=== PATIENT | male | born 1950 | race Caucasian/White ===

== ENCOUNTER 2016-11-08 02:59 | Inpatient (IN) | payer BC ==
[~2016-11-08] VITALS: Ht 172.7 cm; Wt 74.8 kg
[2016-11-08 02:59] VITALS: BP_SYST 149
[2016-11-08] MEDS ORDERED: NACL 0.9% 1,000 ML IV SCH (03:04)
[2016-11-08 04:09] LABS: BASOPHILS % (AUTO) 0.4 % (0.0-2.0); HEMATOCRIT 27.5 % (36-54); HEMOGLOBIN 8.9 g/dL (14.0-18.0); LYMPHOCYTES # (AUTO) 0.9 K/uL (1.0-5.5); LYMPHOCYTES % (AUTO) 10.8 % (20.5-51.5); MEAN CORPUSCULAR HEMOGLOBIN 29 pg (27-31); MEAN CORPUSCULAR HGB CONC 32 % (32-36); MEAN CORPUSCULAR VOLUME 90 fL (79.0-98.0); MONOCYTES # (AUTO) 0.8 K/uL (0.0-1.0); MONOCYTES % (AUTO) 9.6 % (1.7-9.3); NEUTROPHILS # (AUTO) 6.8 K/uL (1.8-7.7); NEUTROPHILS % (AUTO) 78.2 % (40.0-70.0); PLATELET COUNT (AUTO) 287 K/uL (130-430); RED BLOOD CELL COUNT(AUTO) 3.05 MIL/uL (4.2-6.2); RED CELL DISTRIBUTION WIDTH 12.6 % (9.0-15.0); WHITE BLOOD COUNT (AUTO) 8.6 K/uL (4.8-10.8)
[2016-11-08 04:10] LABS: ANION GAP 6 (5-15); CALCIUM 8.5 mg/dL (8.4-11.0); CHLORIDE 98 mmol/L (98-107); CREATININE 0.55 mg/dL (0.55-1.30); EOSINOPHILS # (AUTO) 0.1 K/uL (0.0-0.4); GLUCOSE 136 mg/dL (70-99); POTASSIUM 3.6 mmol/L (3.5-5.1); SODIUM SERUM 132 mmol/L (136-145); UREA NITROGEN, BLOOD 4 mg/dL (8-21)
[2016-11-08 04:15] LABS: ALANINE AMINOTRANSFERASE 74 U/L (12-78); ALBUMIN 2.4 g/dL (3.4-4.8); ASPARTATE AMINOTRANSFERASE 80 U/L (10-37); TOTAL BILIRUBIN 0.3 mg/dL (0.0-1.0)
[2016-11-08 04:16] LABS: INR 1.1 (0.80-1.20); PROTHROMBIN TIME 11.7 SECS (9.5-12.5)
[2016-11-08 04:18] LABS: ALCOHOL, BLOOD < 3 mg/dL (<10); GFR AFRICAN AMERICAN 193 mL/min (>90)
[2016-11-08] MEDS ORDERED: LORazepam 2 MG/ML VIAL (FOR ER USE) IVP ONE ×2 (04:45)
[2016-11-08] MEDS ORDERED: LORazepam 2 MG/ML VIAL (FOR ER USE) ONE (04:52)
[2016-11-08] MEDS ORDERED: ZIN220 PO (05:38)
[2016-11-08] MEDS ORDERED: ONDA4TAB5 PO (05:38)
[2016-11-08] MEDS ORDERED: HYDR-1189 PO (05:38)
[2016-11-08] MEDS ORDERED: NICO1PAT25 TD (05:38)
[2016-11-08] MEDS ORDERED: PIPE3.3714 IV (05:38)
[2016-11-08] MEDS ORDERED: ASCO500T20 PO (05:41)
[2016-11-08] MEDS ORDERED: ENOX80DI8 SQ (05:41)
[2016-11-08] MEDS ORDERED: LORA1TAB PO (05:42)
[2016-11-08] MEDS ORDERED: MULT-1117 (05:44)
[2016-11-08] MEDS ORDERED: FOLIC ACID 1 MG, THIAMINE HCL 100 MG, MAGNESIUM SULFATE 1 GM, MVI 10 ML in NACL 0.9% 1,... IV SCH (05:45)
[2016-11-08] MEDS ORDERED: LORazepam 2 MG/ML VIAL IVP PRN (05:45)
[2016-11-08 05:55] VITALS: BP_SYST 130
[2016-11-08 08:10] VITALS: BP_SYST 156
[2016-11-08] MEDS ORDERED: FLUMAZENIL 0.1 MG/ML IVP ONE ×2 (11:30→11:45)
[2016-11-08] MEDS: FOLIC ACID 1 MG, THIAMINE HCL 100 MG, MAGNESIUM SULFATE 1 GM, MVI 10 ML in NACL 0.9% 1,... IV SCH (11:51)
[2016-11-08] MEDS ORDERED: ENOXAPARIN SODIUM 80 MG/0.8 ML SYRINGE SQ ONE (12:00)
[2016-11-08] MEDS ORDERED: ENOXAPARIN SODIUM 80 MG/0.8 ML SYRINGE SQ SCH (12:00)
[2016-11-08 12:27] VITALS: BP_SYST 143
[2016-11-08] MEDS ORDERED: IOHEXOL 350 mgI/mL, 150 ML INFUS..BTL IV ONE (14:43)
[2016-11-08] MEDS: VANCOMYCIN HCL 1,000 MG in NS 250 ML IV SCH (15:53)
[2016-11-08 16:25] VITALS: BP_SYST 135
[2016-11-08 19:59] VITALS: BP_SYST 134
[2016-11-08] MEDS: ASCORBIC ACID 500 MG TABLET PO SCH (21:00)
[2016-11-09] VITALS (13 sets, daily range): BP systolic 137–164
[2016-11-09] MEDS: FOLIC ACID 1 MG, THIAMINE HCL 100 MG, MAGNESIUM SULFATE 1 GM, MVI 10 ML in NACL 0.9% 1,... IV SCH ×3 (02:27→21:05)
[2016-11-09] MEDS: VANCOMYCIN HCL 1,000 MG in NS 250 ML IV SCH ×2 (02:28→18:41)
[2016-11-09] MEDS: MORPHINE 4 MG/ML INJ. SYRINGE IVP PRN ×3 (06:09→18:44)
[2016-11-09 06:25] LABS: INR 1.1 (0.80-1.20); PROTHROMBIN TIME 11.4 SECS (9.5-12.5)
[2016-11-09 06:33] LABS: BASOPHILS % (AUTO) 0.4 % (0.0-2.0); EOSINOPHILS # (AUTO) 0.1 K/uL (0.0-0.4); EOSINOPHILS % (AUTO) 0.9 % (0.0-4.0); HEMATOCRIT 24.4 % (36-54); HEMOGLOBIN 8.3 g/dL (14.0-18.0); LYMPHOCYTES # (AUTO) 1.2 K/uL (1.0-5.5); LYMPHOCYTES % (AUTO) 13.8 % (20.5-51.5); MEAN CORPUSCULAR HEMOGLOBIN 30 pg (27-31); MEAN CORPUSCULAR HGB CONC 34 % (32-36); MEAN CORPUSCULAR VOLUME 90 fL (79.0-98.0); MONOCYTES # (AUTO) 0.9 K/uL (0.0-1.0); MONOCYTES % (AUTO) 10.1 % (1.7-9.3); NEUTROPHILS # (AUTO) 6.4 K/uL (1.8-7.7); NEUTROPHILS % (AUTO) 74.8 % (40.0-70.0); PLATELET COUNT (AUTO) 263 K/uL (130-430); RED BLOOD CELL COUNT(AUTO) 2.72 MIL/uL (4.2-6.2); RED CELL DISTRIBUTION WIDTH 12.3 % (9.0-15.0); WHITE BLOOD COUNT (AUTO) 8.6 K/uL (4.8-10.8)
[2016-11-09 06:38] LABS: ALBUMIN 2.1 g/dL (3.4-4.8); CALCIUM 8.5 mg/dL (8.4-11.0); CREATININE 0.49 mg/dL (0.55-1.30); POTASSIUM 3.1 mmol/L (3.5-5.1); THYROID STIMULATING HORMONE 1.32 uIu/mL (0.34-4.82); TOTAL BILIRUBIN 0.6 mg/dL (0.0-1.0); TOTAL PROTEIN, SERUM 6.4 g/dL (6.4-8.3)
[2016-11-09] MEDS: ASCORBIC ACID 500 MG TABLET PO SCH ×2 (08:30→20:52)
[2016-11-09] MEDS ORDERED: ENOXAPARIN SODIUM 80 MG/0.8 ML SYRINGE SQ SCH (09:00)
[2016-11-09] MEDS: POTASSIUM CHLORIDE 40 MEQ in NS 250 ML IV ONE ×2 (11:06→11:09)
[2016-11-09] MEDS ORDERED: LR 1,000 ML IV ONE (13:58)
[2016-11-09] MEDS ORDERED: MIDAZOLAM HCL 5 MG/5 ML VIAL ONE (14:00)
[2016-11-09] MEDS ORDERED: PROPOFOL 200MG/ 20ML VIAL (DIPRIVAN) IV ONE (14:00)
[2016-11-09] MEDS ORDERED: SEVOFLURANE 15 MIN GAS INH ONE (14:00)
[2016-11-09] MEDS ORDERED: NALBUPHINE HCL 10 MG/ML AMP IVP PRN (14:00)
[2016-11-09] MEDS ORDERED: PROTAMINE SULFATE 50MG/5 ML VIAL IV ONE (14:00)
[2016-11-09] MEDS ORDERED: ONDANSETRON HCL 4 MG/2 ML VIAL IVP PRN ×2 (14:00)
[2016-11-09] MEDS ORDERED: ETOMIDATE 20 MG/ 10 ML VIAL (AMIDATE) ONE (14:00)
[2016-11-09] MEDS ORDERED: DIPHENHYDRAMINE INJ 50 MG/ML VIAL IVP PRN (14:00)
[2016-11-09] MEDS ORDERED: HEPARIN SODIUM, PORCINE 10,000 UNITS/ 10 ML VIAL ONE (14:00)
[2016-11-09] MEDS ORDERED: KETOROLAC TROMETHAMINE 30 MG VIAL IM PRN (14:00)
[2016-11-09] MEDS ORDERED: LR 1,000 ML IV.SOLN IV ONE (14:00)
[2016-11-09] MEDS ORDERED: ePHEDrine sulfate 50 MG/ML VIAL IVP PRN (14:00)
[2016-11-09] MEDS ORDERED: NALOXONE HCL 0.4 MG/ML AMP (NARCAN) IVP PRN (14:00)
[2016-11-09] MEDS ORDERED: NS IRRIG SOLN 1000 ML IR ONE (14:00)
[2016-11-09] MEDS ORDERED: fentaNYL CITRATE/PF 100 MCG/2 ML AMP IVP PRN (14:00)
[2016-11-09] MEDS ORDERED: CEFAZOLIN 2 GM IVPB PREMIX 50 ML IV ONE (14:00)
[2016-11-09] MEDS ORDERED: fentaNYL CITRATE 250 MCG/5 ML AMP ONE (14:00)
[2016-11-09] MEDS ORDERED: THROMBIN (BOVINE) 5000 UNITS/ VIAL TP ONE (14:00)
[2016-11-09] MEDS: HYDROcodone/ACETAMIN 5-325 MG TAB (NORCO/ VICODIN) PO PRN (17:13)
[2016-11-09] MEDS: CILOSTAZOL 50 MG TABLET (PLETAL) PO SCH (20:52)
[2016-11-10] VITALS (14 sets, daily range): BP systolic 104–164
[2016-11-10] MEDS: VANCOMYCIN HCL 1,000 MG in NS 250 ML IV SCH ×2 (03:30→15:47)
[2016-11-10] MEDS: MORPHINE 4 MG/ML INJ. SYRINGE IVP PRN ×3 (03:47→23:29)
[2016-11-10] MEDS: FOLIC ACID 1 MG, THIAMINE HCL 100 MG, MAGNESIUM SULFATE 1 GM, MVI 10 ML in NACL 0.9% 1,... IV SCH (04:32)
[2016-11-10 06:19] LABS: CREATININE 0.51 mg/dL (0.55-1.30); POTASSIUM 3.3 mmol/L (3.5-5.1); TOTAL BILIRUBIN 0.7 mg/dL (0.0-1.0); TOTAL PROTEIN, SERUM 6.1 g/dL (6.4-8.3)
[2016-11-10 06:25] LABS: BASOPHILS % (AUTO) 0.2 % (0.0-2.0); EOSINOPHILS # (AUTO) 0.1 K/uL (0.0-0.4); EOSINOPHILS % (AUTO) 0.7 % (0.0-4.0); HEMATOCRIT 22.6 % (36-54); HEMOGLOBIN 7.6 g/dL (14.0-18.0); LYMPHOCYTES % (AUTO) 10.7 % (20.5-51.5); MEAN CORPUSCULAR HEMOGLOBIN 30 pg (27-31); MEAN CORPUSCULAR HGB CONC 34 % (32-36); MEAN CORPUSCULAR VOLUME 89 fL (79.0-98.0); MONOCYTES % (AUTO) 10.5 % (1.7-9.3); NEUTROPHILS # (AUTO) 7.4 K/uL (1.8-7.7); NEUTROPHILS % (AUTO) 77.9 % (40.0-70.0); PLATELET COUNT (AUTO) 257 K/uL (130-430); RED BLOOD CELL COUNT(AUTO) 2.53 MIL/uL (4.2-6.2); RED CELL DISTRIBUTION WIDTH 12.4 % (9.0-15.0); WHITE BLOOD COUNT (AUTO) 9.5 K/uL (4.8-10.8)
[2016-11-10] MEDS ORDERED: FUROSEMIDE 20 MG/2 ML VIAL IVP ONE (07:45)
[2016-11-10] MEDS: ASPIRIN 325 MG TABLET (ECOTRIN) PO SCH (08:03)
[2016-11-10] MEDS: CILOSTAZOL 50 MG TABLET (PLETAL) PO SCH ×2 (08:04→21:11)
[2016-11-10] MEDS: ASCORBIC ACID 500 MG TABLET PO SCH ×2 (08:05→21:11)
[2016-11-10] MEDS ORDERED: CILOSTAZOL 50 MG TABLET (PLETAL) ONE (08:09)
[2016-11-10] MEDS ORDERED: cloNIDine HCL 0.1 MG TABLET PO SCH (09:00)
[2016-11-10] MEDS ORDERED: ENOXAPARIN SODIUM 40 MG/0.4 ML SYRINGE SUBCUT ONE (10:00)
[2016-11-10 13:09] LABS: FOLATE (FOLIC ACID) >20.0 ng/mL (>3.0)
[2016-11-10] MEDS ORDERED: DIPHENHYDRAMINE HCL 25 MG CAPSULE PO ONE (14:15)
[2016-11-10] MEDS ORDERED: DIPHENHYDRAMINE HCL 25 MG CAPSULE ONE (14:15)
[2016-11-10] MEDS ORDERED: ACETAMINOPHEN 325 MG TABLET ONE (14:15)
[2016-11-10] MEDS ORDERED: ACETAMINOPHEN 650 MG/20.3 ML UDC PO PRN (14:15)
[2016-11-10] MEDS: HYDROcodone/ACETAMIN 5-325 MG TAB (NORCO/ VICODIN) PO PRN ×2 (14:32→19:49)
[2016-11-10] MEDS: NICOTINE 14 MG/24 HR PATCH.TD24 TD SCH (14:33)
[2016-11-10] MEDS ORDERED: cloNIDine HCL 0.1 MG/24 HR PATCH.TDWK TD ONE (14:45)
[2016-11-10] MEDS ORDERED: POTASSIUM CHLORIDE IV ONE (15:00)
[2016-11-10] MEDS ORDERED: NS 0.45% IV ONE (15:00)
[2016-11-10] MEDS ORDERED: MAGNESIUM SULFATE IV ONE (15:00)
[2016-11-10] MEDS: POTASSIUM CHLORIDE 10 MEQ in NACL 0.9% 1,000 ML IV SCH (15:56)
[2016-11-11] VITALS (8 sets, daily range): BP systolic 118–146
[2016-11-11] MEDS: MORPHINE 4 MG/ML INJ. SYRINGE IVP PRN ×3 (03:34→13:54)
[2016-11-11] MEDS: VANCOMYCIN HCL 1,000 MG in NS 250 ML IV SCH ×2 (03:37→14:49)
[2016-11-11 05:58] LABS: BASOPHILS % (AUTO) 0.3 % (0.0-2.0); EOSINOPHILS # (AUTO) 0.2 K/uL (0.0-0.4); EOSINOPHILS % (AUTO) 1.8 % (0.0-4.0); LYMPHOCYTES % (AUTO) 11.9 % (20.5-51.5); MEAN CORPUSCULAR HEMOGLOBIN 30 pg (27-31); MEAN CORPUSCULAR HGB CONC 34 % (32-36); MEAN CORPUSCULAR VOLUME 89 fL (79.0-98.0); MONOCYTES % (AUTO) 11.6 % (1.7-9.3); NEUTROPHILS # (AUTO) 6.3 K/uL (1.8-7.7); NEUTROPHILS % (AUTO) 74.4 % (40.0-70.0); PLATELET COUNT (AUTO) 239 K/uL (130-430); RED BLOOD CELL COUNT(AUTO) 3.02 MIL/uL (4.2-6.2); RED CELL DISTRIBUTION WIDTH 12.4 % (9.0-15.0); WHITE BLOOD COUNT (AUTO) 8.5 K/uL (4.8-10.8)
[2016-11-11 06:07] LABS: HEMOGLOBIN 9.1 g/dL (14.0-18.0)
[2016-11-11 06:17] LABS: CALCIUM 7.8 mg/dL (8.4-11.0); CREATININE 0.51 mg/dL (0.55-1.30); POTASSIUM 3.4 mmol/L (3.5-5.1); TOTAL BILIRUBIN 0.7 mg/dL (0.0-1.0); TOTAL PROTEIN, SERUM 6.2 g/dL (6.4-8.3)
[2016-11-11] MEDS ORDERED: ENOXAPARIN SODIUM 40 MG/0.4 ML SYRINGE SUBCUT SCH (09:00)
[2016-11-11] MEDS: ASPIRIN 325 MG TABLET (ECOTRIN) PO SCH (09:06)
[2016-11-11] MEDS: CILOSTAZOL 50 MG TABLET (PLETAL) PO SCH ×2 (09:06→20:26)
[2016-11-11] MEDS: ASCORBIC ACID 500 MG TABLET PO SCH ×2 (09:06→20:27)
[2016-11-11] MEDS: NICOTINE 14 MG/24 HR PATCH.TD24 TD SCH (09:15)
[2016-11-11] MEDS: POTASSIUM CHLORIDE 10 MEQ in NACL 0.9% 1,000 ML IV SCH (14:49)
[2016-11-11] MEDS: HYDROcodone/ACETAMIN 5-325 MG TAB (NORCO/ VICODIN) PO PRN ×2 (16:16→20:35)
[2016-11-11] MEDS ORDERED: MAGNESIUM SULFATE 1 GM/2 ML VIAL IVP ONE (18:30)
[2016-11-11] MEDS ORDERED: COMMUNICATION ORDER XX ONE (20:15)
[2016-11-17] MEDS ORDERED: cloNIDine HCL 0.1 MG/24 HR PATCH.TDWK TD SCH (09:00)
== END 2016-11-11 21:38 | disposition home or self-care (01) | DRG 271 ==
LOC: SED 02:59 → STU 05:35 → SIC 11-09 15:30 → STU 11-10 10:34
PROVIDERS: ADMIT Family Medicine; ATTEND Family Medicine
PROC: 041D0JJ Bypass Left Common Iliac Artery to Left Femoral Artery with Synthetic Substitute, Open Approach (ICD-10-PCS; principal; 2016-11-09 12:00)
PROC: 30233N1 Transfusion of Nonautologous Red Blood Cells into Peripheral Vein, Percutaneous Approach (ICD-10-PCS; 2016-11-10)
DX: I77.9 Disorder of arteries and arterioles, unspecified (principal); I96 Gangrene, not elsewhere classified; E46 Unspecified protein-calorie malnutrition; G31.2 Degeneration of nervous system due to alcohol; Z68.25 Body mass index [BMI] 25.0-25.9, adult; K70.30 Alcoholic cirrhosis of liver without ascites; I10 Essential (primary) hypertension; K21.9 Gastro-esophageal reflux disease without esophagitis; F32.9 Major depressive disorder, single episode, unspecified; F17.210 Nicotine dependence, cigarettes, uncomplicated; D64.9 Anemia, unspecified; G40.909 Epilepsy, unspecified, not intractable, without status epilepticus; G89.4 Chronic pain syndrome; E87.6 Hypokalemia; E83.42 Hypomagnesemia
CPT/HCPCS: 36415; 70450-TC; 71010; 73706; 80053; 80202-TC; 82140-TC; 82607; 82746; 82962; 83605; 83735-TC; 83880; 84443-TC; 84484; 85025; 85610-TC; 85730-TC; 86886; 86900; 86901; 86920; 87040-TC; 87081; 93005; 93880; 93923; 93970; 94010; 96374; 99285; C1751; G0482; J0690; J1644; J1650; J1940; J2060; J2250; J2270; J2704; J2720; J3010; J3370; J3411; J3475; J3480; J3490; J7030; J7050; J7120; P9021; Q0163; Q9967